=== PATIENT | male | born 1985 ===

== ENCOUNTER 2016-04-27 01:09 | Emergency (ER) | payer OTHER ==
[~2016-04-27] VITALS: Ht 177.8 cm; Wt 70.5 kg
[2016-04-27 01:12] VITALS: TEMP 98.1
[2016-04-27 03:09] LABS: ALBUMIN 4.8 gm/dL (3.5-5.0); BILIRUBIN,TOTAL 1.9 mg/dL (0.0-1.0); CALCIUM 9.6 mg/dL (8.4-10.2); TOTAL PROTEIN 8.6 gm/dL (6.4-8.2)
[2016-04-27 04:35] VITALS: BP 110/62; PULSE 72
== END 2016-04-27 04:54 | disposition home or self-care (01) ==
LOC: COL.ER 01:09
PROVIDERS: Emergency Medicine
DX: R11.2 Nausea with vomiting, unspecified (principal); R19.7 Diarrhea, unspecified; R10.13 Epigastric pain; R10.33 Periumbilical pain
CPT/HCPCS: J2405; J2550; J7030